=== PATIENT | female | born 1990 | race Caucasian/White ===

== ENCOUNTER → 2021-02-17 | Outpatient (REF) | payer BC, MEDICAID | LOC: M SFHCWAGY 16:47 | PROVIDERS: ATTEND Advanced Practice Midwife | DX: O34.219 Maternal care for unspecified type scar from previous cesarean delivery (principal); Z3A.00 Weeks of gestation of pregnancy not specified ==

== ENCOUNTER 2021-03-19 01:58 | Outpatient (CLI) | payer BC, MEDICAID ==
[~2021-03-19] VITALS: Ht 162.6 cm; Wt 77.0 kg
[2021-03-19 02:23] VITALS: BP 125/78
--- NOTE | 2021-03-19 03:38 | IPNPDOC ---
Text Note Date of Service The patient was seen on 03/19/21. NOTE S: 31 yo at 40 5/7 weeks presents with uterine contractions for several hours. She has had a small amount of leaking for the past 24 hours. no bleeding. 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 O: AVSS NAD Abd: NT, gravid FHT: Category one toco: q3-7 minutes, moderate ext: NT SSE: +nitrazine, negative pool, negative fern no lesions present in vulvovaginal area SVE: 1 cm/50%/-3 bedside ultrasound: vertex, normal ALPHONSO A/P 31 yo att 40 5/7 weeks with contractions, not in labor at this time. Not able to confirm rupture of membranes Pt desires to go home to await labor Pt will return for increasing pain Pt aware of risks VS,Fishbone, I+O VS, Fishbone, I+O Vital Signs Date Time Temp Pulse Resp B/P (MAP) Pulse Ox O2 Delivery O2 Flow Rate FiO2 03/19/21 02:23 99.3 93 16 125/78 (94) CLAIRE WHEATLEY MD Mar 19, 2021 03:38
[2021-03-19 03:45] VITALS: BP 141/80
[2021-03-20] MEDS ORDERED: PRENTAB9 PO (10:35)
== END 2021-03-19 04:00 | disposition home or self-care (01) ==
LOC: M LDO 01:58
PROVIDERS: ATTEND Specialist
DX: O47.03 False labor before 37 completed weeks of gestation, third trimester (principal); O48.0 Post-term pregnancy; Z3A.40 40 weeks gestation of pregnancy

== ENCOUNTER 2021-03-20 10:25 | Inpatient (IN) | payer BC, MEDICAID ==
[~2021-03-20] VITALS: Ht 162.6 cm; Wt 76.2 kg
[2021-03-20] VITALS (28 sets, daily range): BP systolic 92–148; BP diastolic 52–102
[2021-03-20] MEDS ORDERED: PRENTAB9 PO (10:35)
[2021-03-20] MEDS ORDERED: PENICILLIN G POTASSIUM IV 5 MU in D5W MINI-BAG PLUS 100 ML IV STA (16:28)
[2021-03-20] MEDS ORDERED: LACTATED RINGER'S 1000 ML IV STA (16:28)
[2021-03-20] MEDS ORDERED: LIDOCAINE 1% MDV 20ML VIAL INFIL PRN (16:30)
[2021-03-20] MEDS ORDERED: TRANEXAMIC ACID INJection 1,000 MG in NS 100 ML IV PRN (16:30)
[2021-03-20] MEDS ORDERED: OXYTOCIN DRIP 30 UNITS in IV 1 EA IV SCH (16:30)
[2021-03-20] MEDS ORDERED: OXYTOCIN INJ 10 UNITS/ML VIAL (J2590) IM PRN (16:30)
[2021-03-20] MEDS ORDERED: OXYTOCIN INJ 10 UNITS/ML VIAL (J2590) IV PRN (16:30)
[2021-03-20] MEDS ORDERED: CARBOPROST TROMETHAMINE 250 MCG/ML AMP IM PRN (16:30)
[2021-03-20] MEDS ORDERED: OXYTOCIN DRIP 30 UNITS in IV 1 EA IV PRN ×6 (16:30)
[2021-03-20] MEDS ORDERED: METHYLERGONOVINE MALEATE 0.2 MG/ML VIAL (J2210) IM PRN (16:30)
[2021-03-20] MEDS ORDERED: LR 1,000 ML IV SCH (16:30)
[2021-03-20 17:05] LABS: HEMATOCRIT 39.1 % (36.0-47.0); HEMOGLOBIN 12.4 g/dl (12.0-15.5); MEAN CORPUSCULAR HEMOGLOBIN 27.7 pg (27.0-33.0); MEAN CORPUSCULAR HGB CONC 31.7 g/dl (32.0-36.5); MEAN CORPUSCULAR VOLUME 87.3 fl (80.0-96.0); PLATELET COUNT, AUTOMATED 168 10^3/uL (150-450); RED BLOOD COUNT 4.48 10^6/uL (4.00-5.40); WHITE BLOOD COUNT 8.3 10^3/uL (4.0-10.0)
[2021-03-20] MEDS ORDERED: FENTANYL 2MCG/ML ROPIVACAINE 0.2% IN 0.9% NACL 100ML IVBAG As Ordered ONE (17:48)
--- NOTE | 2021-03-20 17:48 | HPEPDOC ---
Obstetrical History & Physical General Date of Admission Mar 20, 2021 at 16:29 History of Present Illness 31-year-old G3, P2002 at 40+6 weeks gestation. Presents with frequent, painful uterine contractions over the past several hours. Denies any loss of fluid or vaginal bleeding. Reports regular movement. ROS: no TAVAREZ, cp, sob, fever/chills/nausea/vomiting. course: Desires trial of labor after . 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 G2, 2014, 40 weeks, successful uncomplicated. Sochx: No tobacco, alcohol or drug use FamHx: None reported labs: Blood type O positive, antibody screen negative, HepBsAg neg, HIV neg, rubella immune, Hep C antibody negative, RPR nonreactive, CT/GC neg, urine culture negative, 1 hour glucose challenge test 134, GBS positive imaging: no anomalies or placental abnormalities Past Medical History Allergies Coded Allergies: No Known Allergies (Unverified , 03/20/21) Medications Scheduled No.137/Iron/Folic Acd ( Vitamin Tablet) 1 Each Tablet, 1 TAB PO DAILY Physical Examination Physical Examination GENERAL: Alert and oriented times three. ABDOMEN: Gravid and non-tender to touch. FETUS: Is vertex (VTX) by sterile vaginal examination (SVE), fetus is vertex (VTX) by [place]. HEART RATE: Regular rate and rhythm. LUNGS: Clear to auscultation (CTA). EXTREMITIES: No edema. No clonus. SVE: 1cm --> 4cm/90%/-2, intact membranes, cephalic, no bloody show. EFM: Cat I [place]: ctxs every 3-5 min. Vital Signs/I&O Vital Signs Date Time Temp Pulse Resp B/P (MAP) Pulse Ox O2 Delivery O2 Flow Rate FiO2 03/20/21 13:57 80 129/59 (82) 03/20/21 10:43 98.1 16 Laboratory Data 24H LABS Laboratory Tests 2 03/20/21 16:48: Nucleated Red Blood Cells % (auto) 0.0 CBC/BMP Laboratory Tests 03/20/21 16:48 Assessment/Plan Assessment 31-year-old G3, P2002 at 40+6 weeks gestation. Early active labor. Spontaneous onset. Reassuring maternal and status. Plan Admit and orient. 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 Group B Streptococcus (GBS) positive, penicillin prophylaxis order Labs and intravenous (IV) per unit protocol. Mode of delivery plan: Trial of labor after /vaginal after C-S as appropriate. CAMRYN ZUNIGA DO Mar 20, 2021 17:48
[2021-03-20] MEDS ORDERED: NALOXONE INJ 0.4MG/1ML VIAL (J2310 PER 1MG) IV PRN (19:15)
[2021-03-20] MEDS ORDERED: ePHEDrine SULFATE 25 MG/5 ML(5MG/ML) SYRINGE IV PRN (19:15)
[2021-03-20] MEDS ORDERED: diphenhydrAMINE 50MG/ML VIAL (J1200) IV PRN (19:15)
[2021-03-20] MEDS ORDERED: EPIDURAL COMMENT XX SCH (19:15)
[2021-03-20] MEDS ORDERED: REFRIGERATOR IV KEYS XX PRN (19:15)
[2021-03-20] MEDS ORDERED: LACTATED RINGER'S 1000 ML IV PRN (19:15)
[2021-03-20] MEDS ORDERED: EPIDURAL/PCA KEYS XX PRN (19:15)
[2021-03-20] MEDS ORDERED: FENTANYL/ROPIVACAINE/NACL BAG 100 ML EPIDURAL SCH (19:15)
[2021-03-20] MEDS ORDERED: ONDANSETRON 4MG/2ML VIAL IV PRN (19:15)
[2021-03-20] MEDS ORDERED: PENICILLIN G POTASSIUM IV 2.5 MU in IV 1 EA IV SCH (21:00)
[2021-03-21] MEDS ORDERED: OXYTOCIN DRIP 30 UNITS in IV 1 EA IV SCH ×2 (00:40→01:55)
--- NOTE | 2021-03-21 00:44 | IPNPDOC ---
Obstetrical Progress Note Date of Service Mar 21, 2021 Subjective Pt is comfortable with epidural. Clear fluid. Objective Vital Signs Date Time Temp Pulse Resp B/P (MAP) Pulse Ox O2 Delivery O2 Flow Rate FiO2 03/20/21 22:21 82 102/56 (71) 03/20/21 21:53 98.5 16 Assessment Heart Rate Tracing: Category I Tocometer Contractions: Yes Frequency: every 3-7 min. Sterile Vaginal Examination Dilation: complete Effacement (%): 100% Station: 0 Postion/Presentation: Cephalic presentation Assessment and Plan Status: Reassuring Anticipate: Vaginal Delivery Additional Comments Second stage of labor. Poor maternal pushing efforts. Reassuring maternal and status. Augment with pitocin/passive descent. CAMRYN ZUNIGA DO Mar 21, 2021 00:43
[2021-03-21] MEDS ORDERED: ONDANSETRON 4MG/2ML VIAL IV PRN (01:55)
[2021-03-21] MEDS ORDERED: DOCUSATE SODIUM 100MG CAPSULE PO PRN (01:55)
[2021-03-21] MEDS ORDERED: RHOGAM 300 MCG (1500 IU) INJ (J2790) IM SCH (01:55)
[2021-03-21] MEDS ORDERED: DIBUCAINE 1% OINTMENT 30GM TOP PRN (01:55)
[2021-03-21] MEDS ORDERED: ACETAMINOPHEN TAB 650MG DOSE (2X325MG) PO PRN (01:55)
[2021-03-21] MEDS ORDERED: IBUPROFEN 600MG TAB PO PRN (01:55)
[2021-03-21] MEDS ORDERED: MEASLES,MUMPS,RUBELLA VACCINE INJ (MMR-II) (90707) SC SCH (01:55)
--- NOTE | 2021-03-21 02:01 | DNPDOC ---
[facility] Delivery Note Delivery Note DATE OF DELIVERY: 03/21/2021 TIME OF DELIVERY: 0145 Spontaneous vaginal delivery. 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 Kyle Arce DO FACOG ANESTHESIA:. Epidural LACERATION:. None ESTIMATED BLOOD LOSS:. 200 mL. FINDINGS: 7 pound 9 ounce (3430g) Male , Score 8 and 9. DELIVERY SUMMARY: The active phase and second stage of labor progressed in normal fashion.. She received a complete course of GBS prophylaxis. She also received Pitocin augmentation throughout her second and third stage of labor. The head delivered in the FREDI position, and restituted LOT. No nuchal cord was noted. The anterior shoulder delivered with gentle downward guidance and the remainder of the body delivered with ease. The baby was placed on the patient's chest. Delayed cord clamping occurred for approximately 1 minute. The cord was then doubly clamped and cut. IV Pitocin was bolused to actively manage the third stage of labor. The placenta delivered intact without any difficulty within 10 minutes of delivery. The uterine fundus was noted to be firm and 2 cm below the umbilicus. The cervix, vagina, vulva and perineum were inspected.. No laceration. Excellent hemostasis was noted. Sponge, needle and instrument counts were correct per protocol. DO VARUN Worley JONATHAN R. DO Mar 21, 2021 02:01
[2021-03-21 04:30] VITALS: BP 121/58
[2021-03-21 06:00] VITALS: BP 121/58
[2021-03-21] MEDS: PRENATAL VITAMINS CHEWABLE TABLET PO SCH (08:35)
[2021-03-21] MEDS: IBUPROFEN 800 MG TAB PO PRN ×2 (08:57→20:49)
[2021-03-21 18:00] VITALS: BP 116/59
[2021-03-22 06:00] VITALS: BP 108/52
--- NOTE | 2021-03-22 07:15 | IPNPDOC ---
Text Note Date of Service The patient was seen on 03/22/21. NOTE PP #1 Visit accomplished with educational aide online Feels well. Reports adequate pain management. Voiding. VSS, afebrile, normotensive Breasts soft, nipples intact Fundus firm, NT, down 1 FB Lochia rubra light without odor Perineum intact PP #1 Routine care. Anticipate D/C in am VS,Fishbone, I+O VS, Fishbone, I+O Vital Signs Date Time Temp Pulse Resp B/P (MAP) Pulse Ox O2 Delivery O2 Flow Rate FiO2 03/22/21 06:00 98.2 91 18 108/52 (70) 03/21/21 18:00 100 Room Air I&O- Last 24 Hours up to 6 AM 03/22/21 06:00 Intake Total 600 ml Output Total 1250 ml Balance -650 ml Yandy Terrell CNM Mar 22, 2021 07:15
[2021-03-22] MEDS: PRENATAL VITAMINS CHEWABLE TABLET PO SCH (07:54)
[2021-03-22 14:59] VITALS: BP 124/56
[2021-03-22] MEDS: ACETAMINOPHEN 500 MG TAB PO PRN (15:26)
[2021-03-22 18:00] VITALS: BP 163/59
[2021-03-23 06:05] VITALS: BP 114/63
[2021-03-23] MEDS ORDERED: METAL LOCK LOOP XX ONE (07:43)
[2021-03-23] MEDS: ACETAMINOPHEN 500 MG TAB PO PRN (08:21)
[2021-03-23] MEDS: PRENATAL VITAMINS CHEWABLE TABLET PO SCH (09:50)
== END 2021-03-23 15:15 | disposition home or self-care (01) | DRG 560 ==
LOC: M LDO 10:25 → M LDI 16:29 → M OBS 03-21 04:27
PROVIDERS: ADMIT Obstetrics & Gynecology; ATTEND Obstetrics & Gynecology
PROC: 10E0XZZ Delivery of Products of Conception, External Approach (ICD-10-PCS; principal; 2021-03-21)
DX: O48.0 Post-term pregnancy (principal); Z3A.40 40 weeks gestation of pregnancy; Z37.0 Single live birth; O34.219 Maternal care for unspecified type scar from previous cesarean delivery

== ENCOUNTER 2021-11-11 17:35 | Emergency (ER) | payer BC, MEDICAID, OTHER ==
[~2021-11-11] VITALS: Ht 162.6 cm; Wt 67.3 kg
[~2021-11-11 17:35] MED LIST: PRENTAB9 PO
[2021-11-11] MEDS ORDERED: ONDANSETRON 4MG/2ML VIAL IV ONE (20:10)
[2021-11-11] MEDS ORDERED: MORPHINE 4 MG/ML 1ML VIAL/SYRINGE (J2270) IV ONE (20:10)
[2021-11-11] MEDS ORDERED: NS 1,000 ML IV ONE (20:10)
[2021-11-11 20:51] LABS: BASO % 0.4 % (0.0-1.0); EOS # 0.1 10^3/uL (0.0-0.5); EOS % 1.9 % (0.0-3.0); HEMATOCRIT 41.7 % (36.0-47.0); HEMOGLOBIN 13.4 g/dl (12.0-15.5); LYMPH # 1.5 10^3/uL (1.5-5.0); LYMPH % 56.7 % (24.0-44.0); MEAN CORPUSCULAR HEMOGLOBIN 27.2 pg (27.0-33.0); MEAN CORPUSCULAR HGB CONC 32.1 g/dl (32.0-36.5); MEAN CORPUSCULAR VOLUME 84.6 fl (80.0-96.0); MONO # 0.3 10^3/uL (0.0-0.8); MONO % 12.7 % (2.0-8.0); NEUTROPHILS % 27.9 % (36.0-66.0); PLATELET COUNT, AUTOMATED 139 10^3/uL (150-450); RED BLOOD COUNT 4.93 10^6/uL (4.00-5.40); WHITE BLOOD COUNT 2.7 10^3/uL (4.0-10.0)
[2021-11-11 21:04] LABS: BLOOD UREA NITROGEN 8 MG/DL (7-18); CREATININE FOR GFR 0.61 MG/DL (0.55-1.30); GLUCOSE, FASTING 85 MG/DL (70-100)
[2021-11-11 21:05] LABS: ALBUMIN 3.6 GM/DL (3.2-5.2); ALT/SGPT 74 U/L (12-78); BILIRUBIN,DIRECT 0.1 MG/DL (0.0-0.2); BILIRUBIN,TOTAL 0.3 MG/DL (0.2-1.0); CALCIUM LEVEL 8.8 MG/DL (8.5-10.1); CARBON DIOXIDE LEVEL 29 MEQ/L (21-32); CHLORIDE LEVEL 106 MEQ/L (98-107); GLOMERULAR FILTRATION RATE > 60.0 (>60); LIPASE 262 U/L (73-393); POTASSIUM SERUM 3.8 MEQ/L (3.5-5.1); SODIUM LEVEL 140 MEQ/L (136-145); TOTAL PROTEIN 7.4 GM/DL (6.4-8.2)
[2021-11-11 21:06] LABS: HCG, SERUM QUALITATIVE NEGATIVE (NEGATIVE)
[2021-11-11] MEDS ORDERED: ISOVUE-370 76% 100ML VIAL As Ordered ONE (21:11)
[2021-11-11 21:13] LABS: NEUTROPHILS # 0.8 10^3/uL (1.5-8.5)
[2021-11-11] MEDS ORDERED: FAMO20TA PO (23:04)
[2021-11-11] MEDS ORDERED: CARA1TAB6 PO (23:04)
[2021-11-11 23:28] VITALS: BP 110/67
[2021-11-13 16:08] LABS: Lyme Disease IgG/IgM Antibodie <0.91 ISR (0.00-0.90); Lyme Disease IgM Ab Quantitati <0.80 index (0.00-0.79)
== END 2021-11-12 00:20 | disposition home or self-care (01) ==
LOC: M ED 17:35
DX: U07.1 COVID-19 (principal); R10.13 Epigastric pain
CPT/HCPCS: 71045; 74177; 80048; 80076; 83690; 84703; 85025; 86617; 96361; 96374; 96375; 99284; J2270; J2405; Q9967

== ENCOUNTER 2021-11-21 13:55 | Emergency (ER) | payer OTHER ==
[~2021-11-21] VITALS: Ht 162.6 cm; Wt 65.3 kg
[2021-11-21 13:55] VITALS: BP 121/69
[~2021-11-21 13:55] MED LIST changes: +CARA1TAB6 PO; +FAMO20TA PO
[2021-11-21] MEDS ORDERED: NS 1,000 ML IV ONE (16:15)
[2021-11-21] MEDS ORDERED: KETOROLAC 30 MG/ML 1ML VIAL IV ONE (16:35)
[2021-11-21] MEDS ORDERED: GI COCKTAIL 50ML BTL(HYOSCYAMINE/MAALOX/LIDOCAINE VISCOUS)(1:3:1) PO ONE (16:35)
[2021-11-21 17:04] LABS: BASO % 0.4 % (0.0-1.0); EOS # 0.1 10^3/uL (0.0-0.5); EOS % 1.9 % (0.0-3.0); HEMATOCRIT 43.8 % (36.0-47.0); HEMOGLOBIN 13.9 g/dl (12.0-15.5); LYMPH # 2.3 10^3/uL (1.5-5.0); LYMPH % 45.2 % (24.0-44.0); MEAN CORPUSCULAR HEMOGLOBIN 26.7 pg (27.0-33.0); MEAN CORPUSCULAR HGB CONC 31.7 g/dl (32.0-36.5); MEAN CORPUSCULAR VOLUME 84.2 fl (80.0-96.0); MONO # 0.4 10^3/uL (0.0-0.8); MONO % 6.9 % (2.0-8.0); NEUTROPHILS # 2.3 10^3/uL (1.5-8.5); NEUTROPHILS % 45.2 % (36.0-66.0); PLATELET COUNT, AUTOMATED 216 10^3/uL (150-450); WHITE BLOOD COUNT 5.2 10^3/uL (4.0-10.0)
[2021-11-21 17:17] LABS: ALT/SGPT 49 U/L (12-78); BILIRUBIN,DIRECT 0.1 MG/DL (0.0-0.2); BILIRUBIN,TOTAL 0.5 MG/DL (0.2-1.0); BLOOD UREA NITROGEN 13 MG/DL (7-18); CALCIUM LEVEL 9.3 MG/DL (8.5-10.1); CARBON DIOXIDE LEVEL 29 MEQ/L (21-32); CHLORIDE LEVEL 109 MEQ/L (98-107); CREATININE FOR GFR 0.65 MG/DL (0.55-1.30); GLOMERULAR FILTRATION RATE > 60.0 (>60); GLUCOSE, FASTING 88 MG/DL (70-100); LIPASE 233 U/L (73-393); SODIUM LEVEL 141 MEQ/L (136-145); TOTAL PROTEIN 7.8 GM/DL (6.4-8.2)
[2021-11-21 17:20] LABS: HCG, SERUM QUALITATIVE NEGATIVE (NEGATIVE)
[2021-11-21] MEDS ORDERED: ISOVUE-370 76% 100ML VIAL As Ordered ONE (17:21)
[2021-11-21 17:54] LABS: ERYTHROCYTE SEDIMENTATION RATE 10 mm/hr (0-20)
[2021-11-21] MEDS ORDERED: PRED20TA PO (19:15)
== END 2021-11-21 19:29 | disposition home or self-care (01) ==
LOC: M ED 13:55
DX: R59.0 Localized enlarged lymph nodes (principal); R51.9 Headache, unspecified; R10.13 Epigastric pain; K21.9 Gastro-esophageal reflux disease without esophagitis
CPT/HCPCS: 70450; 70491; 76705; 80048; 80076; 83605; 83690; 84703; 85025; 85652; 86140; 96361; 96374; 99284; J1885; Q9967

== ENCOUNTER → 2021-12-02 | Outpatient (CLI) | payer OTHER ==
[~2021-12-02] MED LIST changes: +E-Z-GAS II EFFERVESCENT PACKET (SODIUM BICARB./CITRIC ACID/SIMETHICONE) As Ordered ONE; +E-Z-HD 98% w/w 340GM SUSP BTL As Ordered ONE; +E-Z-PAQUE 96% w/w SUSP 176GM BTL As Ordered ONE; +OMEP40CA4 PO; +PRED20TA PO
== END ==
LOC: M RAD 08:41
PROVIDERS: ATTEND Physician Assistant Medical
DX: R10.13 Epigastric pain (principal)

== ENCOUNTER 2021-12-03 07:30 | Emergency (ER) | payer OTHER ==
[~2021-12-03] VITALS: Ht 162.6 cm; Wt 64.0 kg
[~2021-12-03 07:30] MED LIST changes: -E-Z-GAS II EFFERVESCENT PACKET (SODIUM BICARB./CITRIC ACID/SIMETHICONE) As Ordered ONE; -E-Z-HD 98% w/w 340GM SUSP BTL As Ordered ONE; -E-Z-PAQUE 96% w/w SUSP 176GM BTL As Ordered ONE
[2021-12-03 07:39] VITALS: BP 135/70
[2021-12-03] MEDS ORDERED: KETOROLAC 60MG 2ML VIAL IM ONE (08:25)
[2021-12-03] MEDS ORDERED: ACETAMINOPHEN 500 MG TAB PO ONE (08:25)
== END 2021-12-03 09:49 | disposition home or self-care (01) ==
LOC: M ED 07:30
DX: R07.89 Other chest pain (principal); M54.9 Dorsalgia, unspecified; R10.9 Unspecified abdominal pain; R51.9 Headache, unspecified; R06.02 Shortness of breath; K21.9 Gastro-esophageal reflux disease without esophagitis; Z79.899 Other long term (current) drug therapy
CPT/HCPCS: 71045; 93005; 96372; 99284; J1885

== ENCOUNTER 2021-12-22 16:36 | Emergency (ER) | payer OTHER ==
[~2021-12-22] VITALS: Ht 162.6 cm; Wt 61.0 kg
[2021-12-22 18:55] LABS: BASO % 0.4 % (0.0-1.0); EOS # 0.1 10^3/uL (0.0-0.5); EOS % 1.2 % (0.0-3.0); HEMATOCRIT 41.4 % (36.0-47.0); HEMOGLOBIN 13.2 g/dl (12.0-15.5); LYMPH # 2.2 10^3/uL (1.5-5.0); MEAN CORPUSCULAR HEMOGLOBIN 26.9 pg (27.0-33.0); MEAN CORPUSCULAR HGB CONC 31.9 g/dl (32.0-36.5); MEAN CORPUSCULAR VOLUME 84.5 fl (80.0-96.0); MONO # 0.4 10^3/uL (0.0-0.8); NEUTROPHILS # 4.1 10^3/uL (1.5-8.5); NEUTROPHILS % 60.1 % (36.0-66.0); PLATELET COUNT, AUTOMATED 227 10^3/uL (150-450); WHITE BLOOD COUNT 6.8 10^3/uL (4.0-10.0)
[2021-12-22] MEDS ORDERED: KETOROLAC 30 MG/ML 1ML VIAL IV ONE (19:05)
[2021-12-22 19:19] LABS: BLOOD UREA NITROGEN 7 MG/DL (7-18); CALCIUM LEVEL 9.2 MG/DL (8.5-10.1); CARBON DIOXIDE LEVEL 30 MEQ/L (21-32); CHLORIDE LEVEL 107 MEQ/L (98-107); CREATININE FOR GFR 0.57 MG/DL (0.55-1.30); GLOMERULAR FILTRATION RATE > 60.0 (>60); GLUCOSE, FASTING 92 MG/DL (70-100); POTASSIUM SERUM 3.6 MEQ/L (3.5-5.1); SODIUM LEVEL 140 MEQ/L (136-145)
[2021-12-22] MEDS ORDERED: KETO10TAB PO (20:27)
[2021-12-22 20:42] VITALS: BP 116/63
== END 2021-12-22 20:46 | disposition home or self-care (01) ==
LOC: M ED 16:36
DX: R10.9 Unspecified abdominal pain (principal); R07.89 Other chest pain; I44.0 Atrioventricular block, first degree; R06.02 Shortness of breath; Z97.5 Presence of (intrauterine) contraceptive device; K21.9 Gastro-esophageal reflux disease without esophagitis; Z79.899 Other long term (current) drug therapy; Z86.16 Personal history of COVID-19
CPT/HCPCS: 74021; 76830; 76856; 80048; 84702; 85025; 85379; 93005; 93976; 96374; 99284; J1885

== ENCOUNTER 2021-12-27 10:12 | Emergency (ER) | payer OTHER ==
[~2021-12-27] VITALS: Ht 162.6 cm; Wt 60.0 kg
[~2021-12-27 10:12] MED LIST changes: +KETO10TAB PO
[2021-12-27] MEDS ORDERED: VENL37.598 (10:45)
[2021-12-27] MEDS ORDERED: KETOROLAC 30 MG/ML 1ML VIAL IM ONE (12:05)
[2021-12-27] MEDS ORDERED: KETOROLAC 30 MG/ML 1ML VIAL IV ONE (12:20)
[2021-12-27 14:00] VITALS: BP 124/80
[2021-12-28] MEDS ORDERED: FAMO20TA PO (10:21)
[2021-12-28] MEDS ORDERED: CARA1TAB6 PO (10:21)
== END 2021-12-27 14:36 | disposition home or self-care (01) ==
LOC: EDBD 10:12 → M ED 10:12
DX: F45.0 Somatization disorder (principal); F32.A Depression, unspecified; Z79.899 Other long term (current) drug therapy
CPT/HCPCS: 96374; 99284; J1885

== ENCOUNTER 2021-12-28 04:50 | Emergency (ER) | payer OTHER ==
[~2021-12-28] VITALS: Ht 162.6 cm; Wt 60.0 kg
[~2021-12-28 04:50] MED LIST changes: +VENL37.598
[2021-12-28 05:17] LABS: VENOUS BASE EXCESS 1.5 (-2.0-2.0); VENOUS HCO3 25.4 MEQ/L (23.0-27.0); VENOUS O2 SATURATION 87.2 % (60.0-80.0); VENOUS PARTIAL PRESSURE CO2 37.8 mmHg (38.0-50.0); VENOUS PH 7.445 UNITS (7.330-7.430); VENOUS STANDARD HCO3 25.5 MEQ/L; VENOUS TOTAL CO2 26.5 MEQ/L (24.0-28.0)
[2021-12-28 05:25] LABS: BASO % 0.3 % (0.0-1.0); EOS # 0.1 10^3/uL (0.0-0.5); EOS % 0.8 % (0.0-3.0); HEMATOCRIT 41.1 % (36.0-47.0); HEMOGLOBIN 13.4 g/dl (12.0-15.5); LYMPH # 1.6 10^3/uL (1.5-5.0); LYMPH % 23.3 % (24.0-44.0); MEAN CORPUSCULAR HEMOGLOBIN 27.2 pg (27.0-33.0); MEAN CORPUSCULAR HGB CONC 32.6 g/dl (32.0-36.5); MEAN CORPUSCULAR VOLUME 83.5 fl (80.0-96.0); MONO # 0.5 10^3/uL (0.0-0.8); MONO % 6.8 % (2.0-8.0); NEUTROPHILS # 4.6 10^3/uL (1.5-8.5); NEUTROPHILS % 68.3 % (36.0-66.0); PLATELET COUNT, AUTOMATED 233 10^3/uL (150-450); RED BLOOD COUNT 4.92 10^6/uL (4.00-5.40); WHITE BLOOD COUNT 6.7 10^3/uL (4.0-10.0)
[2021-12-28 05:52] LABS: ALBUMIN 3.8 GM/DL (3.2-5.2); ALT/SGPT 34 U/L (12-78); BILIRUBIN,DIRECT 0.2 MG/DL (0.0-0.2); BILIRUBIN,TOTAL 0.9 MG/DL (0.2-1.0); BLOOD UREA NITROGEN 8 MG/DL (7-18); CALCIUM LEVEL 9.1 MG/DL (8.5-10.1); CARBON DIOXIDE LEVEL 25 MEQ/L (21-32); CHLORIDE LEVEL 105 MEQ/L (98-107); CREATININE FOR GFR 0.86 MG/DL (0.55-1.30); GLOMERULAR FILTRATION RATE > 60.0 (>60); GLUCOSE, FASTING 167 MG/DL (70-100); LIPASE 128 U/L (73-393); POTASSIUM SERUM 4.7 MEQ/L (3.5-5.1); SODIUM LEVEL 137 MEQ/L (136-145); TOTAL PROTEIN 7.3 GM/DL (6.4-8.2)
[2021-12-28] MEDS ORDERED: HALOPERIDOL 5MG/ML VIAL (J1630 PER 1) IV ONE (07:00)
[2021-12-28] MEDS: GASTROGRAFIN SOLUTION 30ML PO SCH ×2 (07:09→07:42)
[2021-12-28] MEDS ORDERED: METOCLOPRAMIDE INJ 10MG/2ML VIAL (J2765 PER 1) IV ONE (07:10)
[2021-12-28] MEDS ORDERED: NS 1,000 ML IV ONE (07:10)
[2021-12-28] MEDS ORDERED: ISOVUE-370 76% 100ML VIAL As Ordered ONE (08:17)
[2021-12-28] MEDS ORDERED: CARA1TAB6 PO (10:21)
[2021-12-28] MEDS ORDERED: FAMO20TA PO (10:21)
[2021-12-28 10:26] LABS: VENOUS BASE EXCESS -2.1 (-2.0-2.0); VENOUS HCO3 23.8 MEQ/L (23.0-27.0); VENOUS O2 SATURATION 80.5 % (60.0-80.0); VENOUS PARTIAL PRESSURE O2 46.2 mmHg (30.0-50.0); VENOUS PH 7.342 UNITS (7.330-7.430); VENOUS STANDARD HCO3 22.4 MEQ/L; VENOUS TOTAL CO2 25.2 MEQ/L (24.0-28.0)
[2021-12-28 11:04] VITALS: BP 125/70
== END 2021-12-28 11:28 | disposition home or self-care (01) ==
LOC: EDBD 04:50 → M ED 04:50
DX: R10.84 Generalized abdominal pain (principal); M54.9 Dorsalgia, unspecified; R51.9 Headache, unspecified; K21.9 Gastro-esophageal reflux disease without esophagitis; R93.5 Abnormal findings on diagnostic imaging of other abdominal regions, including retroperitoneum; Z79.899 Other long term (current) drug therapy
CPT/HCPCS: 74177; 80048; 80076; 81001; 82803; 83605; 83690; 84702; 85025; 93041; 96361; 96374; 96375; 99285; J1630; J2765; Q9963; Q9967

== ENCOUNTER → 2022-02-23 | Outpatient (REF) | payer OTHER | LOC: M PLALAB 13:22 | PROVIDERS: ATTEND Advanced Practice Midwife | DX: Z30.432 Encounter for removal of intrauterine contraceptive device (principal) ==

== ENCOUNTER → 2022-03-12 | Outpatient (CLI) | payer OTHER | LOC: M WHC 10:17 | PROVIDERS: ATTEND Specialist | DX: N64.9 Disorder of breast, unspecified (principal) ==

== ENCOUNTER → 2022-03-15 | Outpatient (CLI) | payer OTHER ==
[2022-03-15 14:29] LABS: BASO % 0.5 % (0.0-1.0); EOS # 0.1 10^3/uL (0.0-0.5); EOS % 2.4 % (0.0-3.0); HEMOGLOBIN 12.1 g/dl (12.0-15.5); LYMPH # 2.3 10^3/uL (1.5-5.0); LYMPH % 41.8 % (24.0-44.0); MEAN CORPUSCULAR HEMOGLOBIN 27.9 pg (27.0-33.0); MEAN CORPUSCULAR HGB CONC 32.7 g/dl (32.0-36.5); MEAN CORPUSCULAR VOLUME 85.3 fl (80.0-96.0); MONO # 0.4 10^3/uL (0.0-0.8); MONO % 7.6 % (2.0-8.0); NEUTROPHILS # 2.6 10^3/uL (1.5-8.5); NEUTROPHILS % 47.5 % (36.0-66.0); PLATELET COUNT, AUTOMATED 189 10^3/uL (150-450); RED BLOOD COUNT 4.34 10^6/uL (4.00-5.40); WHITE BLOOD COUNT 5.5 10^3/uL (4.0-10.0)
[2022-03-15 15:02] LABS: ALBUMIN 3.5 GM/DL (3.2-5.2); ALT/SGPT 61 U/L (12-78); BILIRUBIN,TOTAL 0.5 MG/DL (0.2-1.0); BLOOD UREA NITROGEN 13 MG/DL (7-18); CALCIUM LEVEL 8.6 MG/DL (8.5-10.1); CARBON DIOXIDE LEVEL 26 MEQ/L (21-32); CHLORIDE LEVEL 107 MEQ/L (98-107); CREATININE FOR GFR 0.62 MG/DL (0.55-1.30); FREE T4 0.74 NG/DL (0.76-1.46); GLOMERULAR FILTRATION RATE > 60.0 (>60); GLUCOSE, FASTING 92 MG/DL (70-100); IRON (FE) 61 UG/DL (50-170); PERCENT SATURATION 16.9 % (13.2-45.0); POTASSIUM SERUM 3.7 MEQ/L (3.5-5.1); SODIUM LEVEL 138 MEQ/L (136-145); TOTAL IRON BINDING CAPACITY 360 UG/DL (250-450); TOTAL PROTEIN 7.1 GM/DL (6.4-8.2)
== END ==
LOC: M LAB 14:10
PROVIDERS: ATTEND Internal Medicine Gastroenterology
DX: R10.11 Right upper quadrant pain (principal)

== ENCOUNTER 2022-04-02 17:52 | Emergency (ER) | payer OTHER ==
[~2022-04-02] VITALS: Ht 162.6 cm; Wt 56.4 kg
[2022-04-02] MEDS ORDERED: NS 1,000 ML IV ONE (18:30)
[2022-04-02] MEDS ORDERED: ONDANSETRON 4MG/2ML VIAL IV ONE (18:30)
[2022-04-02 19:10] LABS: BASO % 0.6 % (0.0-1.0); EOS # 0.1 10^3/uL (0.0-0.5); EOS % 2.4 % (0.0-3.0); HEMOGLOBIN 11.2 g/dl (12.0-15.5); LYMPH # 2.3 10^3/uL (1.5-5.0); LYMPH % 46.9 % (24.0-44.0); MEAN CORPUSCULAR HEMOGLOBIN 27.4 pg (27.0-33.0); MEAN CORPUSCULAR VOLUME 85.6 fl (80.0-96.0); MONO # 0.4 10^3/uL (0.0-0.8); NEUTROPHILS # 2.1 10^3/uL (1.5-8.5); NEUTROPHILS % 41.9 % (36.0-66.0); PLATELET COUNT, AUTOMATED 166 10^3/uL (150-450); RED BLOOD COUNT 4.09 10^6/uL (4.00-5.40); WHITE BLOOD COUNT 4.9 10^3/uL (4.0-10.0)
[2022-04-02 19:11] LABS: HCG, SERUM QUALITATIVE NEGATIVE (NEGATIVE)
[2022-04-02 19:21] LABS: ALBUMIN 3.5 GM/DL (3.2-5.2); ALT/SGPT 49 U/L (12-78); BILIRUBIN,DIRECT < 0.1 MG/DL (0.0-0.2); BILIRUBIN,TOTAL 0.4 MG/DL (0.2-1.0); BLOOD UREA NITROGEN 14 MG/DL (7-18); CALCIUM LEVEL 8.7 MG/DL (8.5-10.1); CARBON DIOXIDE LEVEL 28 MEQ/L (21-32); CHLORIDE LEVEL 108 MEQ/L (98-107); CREATININE FOR GFR 0.83 MG/DL (0.55-1.30); GLOMERULAR FILTRATION RATE > 60.0 (>60); GLUCOSE, FASTING 88 MG/DL (70-100); LIPASE 167 U/L (73-393); POTASSIUM SERUM 4.8 MEQ/L (3.5-5.1); SODIUM LEVEL 140 MEQ/L (136-145); TOTAL PROTEIN 7.2 GM/DL (6.4-8.2)
[2022-04-02] MEDS ORDERED: ONDA4TAB6 PO (19:58)
[2022-04-02] MEDS ORDERED: SIME180C25 PO (20:33)
[2022-04-02 20:52] VITALS: BP 104/61
[2022-04-03] MEDS ORDERED: OMEP40CA5 PO (13:34)
[2022-04-03] MEDS ORDERED: VENL75CA47 PO (13:34)
== END 2022-04-02 20:59 | disposition home or self-care (01) ==
LOC: M ED 17:52
DX: K80.20 Calculus of gallbladder without cholecystitis without obstruction (principal); K83.8 Other specified diseases of biliary tract; K21.9 Gastro-esophageal reflux disease without esophagitis; Z79.899 Other long term (current) drug therapy
CPT/HCPCS: 76705; 80048; 80076; 83690; 84703; 85025; 96361; 96374; 99284; J2405

== ENCOUNTER → 2022-04-17 | Outpatient (CLI) | payer OTHER ==
[~2022-04-17] MED LIST changes: +OMEP40CA5 PO; +ONDA4TAB6 PO; +SIME180C25 PO; +VENL75CA47 PO
== END ==
LOC: M RAD 15:41
PROVIDERS: ATTEND Internal Medicine Gastroenterology
DX: K80.67 Calculus of gallbladder and bile duct with acute and chronic cholecystitis with obstruction (principal); K80.51 Calculus of bile duct without cholangitis or cholecystitis with obstruction

== ENCOUNTER 2024-06-16 13:24 | Emergency (ER) | payer OTHER ==
[~2024-06-16] VITALS: Ht 162.6 cm; Wt 64.8 kg
[~2024-06-16 13:24] MED LIST changes: +ONDA-282 PO; -ONDA4TAB6 PO
[2024-06-16 14:43] LABS: BASO % 0.5 % (0.0-1.0); EOS # 0.3 10^3/uL (0.0-0.5); EOS % 4.3 % (0.0-3.0); HEMATOCRIT 37.3 % (36.0-47.0); HEMOGLOBIN 12.3 g/dl (12.0-15.5); LYMPH # 1.9 10^3/uL (1.5-5.0); LYMPH % 33.7 % (24.0-44.0); MEAN CORPUSCULAR HEMOGLOBIN 27.6 pg (27.0-33.0); MEAN CORPUSCULAR VOLUME 83.6 fl (80.0-96.0); MONO # 0.4 10^3/uL (0.0-0.8); MONO % 6.6 % (2.0-8.0); NEUTROPHILS # 3.2 10^3/uL (1.5-8.5); NEUTROPHILS % 54.7 % (36.0-66.0); PLATELET COUNT, AUTOMATED 173 10^3/uL (150-450); RED BLOOD COUNT 4.46 10^6/uL (4.00-5.40); WHITE BLOOD COUNT 5.8 10^3/uL (4.0-10.0)
[2024-06-16 15:12] LABS: BLOOD UREA NITROGEN 11 MG/DL (9-23); CALCIUM LEVEL 9.1 MG/DL (8.5-10.1); CARBON DIOXIDE LEVEL 26 MMOL/L (20-31); CHLORIDE LEVEL 109 MMOL/L (98-107); CREATININE FOR GFR 0.53 MG/DL (0.55-1.30); GLOMERULAR FILTRATION RATE > 60.0 (>60); GLUCOSE, FASTING 101 MG/DL (60-100); POTASSIUM SERUM 3.7 MMOL/L (3.5-5.1); SODIUM LEVEL 140 MMOL/L (136-145)
[2024-06-16 15:58] LABS: HCG, SERUM QUANTITATIVE 16769.8 MIU/ML (<4.2)
[2024-06-16 16:35] VITALS: BP 121/68; TEMP 97.2; O2SAT 100
== END 2024-06-16 17:09 | disposition home or self-care (01) ==
LOC: M ED 13:24
DX: O36.4XX1 Maternal care for intrauterine death, fetus 1 (principal); O99.611 Diseases of the digestive system complicating pregnancy, first trimester; Z79.899 Other long term (current) drug therapy

== ENCOUNTER → 2024-06-23 | Outpatient (CLI) | payer OTHER | LOC: M PLALAB 11:35 | PROVIDERS: ATTEND Advanced Practice Midwife | DX: O03.9 Complete or unspecified spontaneous abortion without complication (principal) ==

== ENCOUNTER → 2024-06-30 | Outpatient (CLI) | payer OTHER ==
[~2024-06-30] MED LIST changes: +HYDR2.5C; +LARI1TAB3
== END ==
LOC: M PLALAB 13:40
PROVIDERS: ATTEND Advanced Practice Midwife
DX: O03.9 Complete or unspecified spontaneous abortion without complication (principal)

== ENCOUNTER 2024-07-05 13:37 | Emergency (ER) | payer OTHER ==
[~2024-07-05] VITALS: Ht 162.6 cm; Wt 64.9 kg
[~2024-07-05 13:37] MED LIST changes: -HYDR2.5C; -LARI1TAB3
[2024-07-05 13:41] VITALS: BP 110/55; TEMP 96.5; O2SAT 98
[2024-07-05] MEDS ORDERED: LARI1TAB3 (13:50)
[2024-07-05] MEDS ORDERED: HYDR2.5C (13:50)
== END 2024-07-05 17:00 | disposition left against medical advice (07) ==
LOC: M ED 13:37
DX: Z53.21 Procedure and treatment not carried out due to patient leaving prior to being seen by health care provider (principal)

== ENCOUNTER → 2024-07-14 | Outpatient (REF) | payer OTHER ==
[~2024-07-14] MED LIST changes: +HYDR2.5C; +LARI1TAB3
[2024-07-14 18:18] LABS: BASO % 0.5 % (0.0-1.0); EOS # 0.2 10^3/uL (0.0-0.5); EOS % 3.7 % (0.0-3.0); HEMATOCRIT 38.7 % (36.0-47.0); HEMOGLOBIN 12.6 g/dl (12.0-15.5); LYMPH # 1.7 10^3/uL (1.5-5.0); MEAN CORPUSCULAR HEMOGLOBIN 27.9 pg (27.0-33.0); MEAN CORPUSCULAR HGB CONC 32.6 g/dl (32.0-36.5); MEAN CORPUSCULAR VOLUME 85.8 fl (80.0-96.0); MONO # 0.4 10^3/uL (0.0-0.8); MONO % 8.2 % (2.0-8.0); NEUTROPHILS % 47.4 % (36.0-66.0); PLATELET COUNT, AUTOMATED 191 10^3/uL (150-450); RED BLOOD COUNT 4.51 10^6/uL (4.00-5.40); WHITE BLOOD COUNT 4.3 10^3/uL (4.0-10.0)
[2024-07-14 18:42] LABS: ALBUMIN 3.6 G/DL (3.2-5.2); ALKALINE PHOSPHATASE 57 U/L (46-116); ALT/SGPT 29 U/L (7.0-40); AST/SGOT 19 U/L (<34); BILIRUBIN,TOTAL 0.8 MG/DL (0.3-1.2); BLOOD UREA NITROGEN 10 MG/DL (9-23); CARBON DIOXIDE LEVEL 25 MMOL/L (20-31); CHLORIDE LEVEL 107 MMOL/L (98-107); CREATININE FOR GFR 0.62 MG/DL (0.55-1.30); GLOMERULAR FILTRATION RATE > 60.0 (>60); GLUCOSE, FASTING 78 MG/DL (60-100); SODIUM LEVEL 136 MMOL/L (136-145); TOTAL PROTEIN 7.1 G/DL (5.7-8.2)
[2024-07-14 18:44] LABS: THYROID STIMULATING HORMONE 1.759 uIU/ML (0.55-4.78)
== END ==
LOC: M LAB REF 16:39
PROVIDERS: ATTEND Pediatrics
DX: L28.2 Other prurigo (principal)

== ENCOUNTER 2024-07-23 19:34 | Emergency (ER) | payer OTHER ==
[~2024-07-23] VITALS: Ht 165.1 cm; Wt 63.0 kg
[~2024-07-23 19:34] MED LIST changes: -SIME180C25 PO; +SIME1CAP4 PO
[2024-07-23 19:40] VITALS: TEMP 98.3
[2024-07-23 20:53] LABS: BASO % 0.8 % (0.0-1.0); EOS # 0.2 10^3/uL (0.0-0.5); EOS % 4.1 % (0.0-3.0); HEMATOCRIT 41.3 % (36.0-47.0); HEMOGLOBIN 13.4 g/dl (12.0-15.5); LYMPH # 2.1 10^3/uL (1.5-5.0); LYMPH % 40.8 % (24.0-44.0); MEAN CORPUSCULAR HEMOGLOBIN 27.9 pg (27.0-33.0); MEAN CORPUSCULAR HGB CONC 32.4 g/dl (32.0-36.5); MONO # 0.4 10^3/uL (0.0-0.8); MONO % 7.6 % (2.0-8.0); NEUTROPHILS # 2.4 10^3/uL (1.5-8.5); NEUTROPHILS % 46.5 % (36.0-66.0); PLATELET COUNT, AUTOMATED 202 10^3/uL (150-450); WHITE BLOOD COUNT 5.2 10^3/uL (4.0-10.0)
[2024-07-23 21:14] LABS: LIPASE 50 U/L (12-53)
[2024-07-23 21:16] LABS: ALBUMIN 3.7 G/DL (3.2-5.2); ALKALINE PHOSPHATASE 65 U/L (46-116); ALT/SGPT 38 U/L (7.0-40); AST/SGOT 26 U/L (<34); BILIRUBIN,DIRECT 0.2 MG/DL (<0.4); BILIRUBIN,TOTAL 0.6 MG/DL (0.3-1.2); BLOOD UREA NITROGEN 11 MG/DL (9-23); CALCIUM LEVEL 9.8 MG/DL (8.5-10.1); CARBON DIOXIDE LEVEL 31 MMOL/L (20-31); CHLORIDE LEVEL 106 MMOL/L (98-107); CREATININE FOR GFR 0.69 MG/DL (0.55-1.30); GLOMERULAR FILTRATION RATE > 60.0 (>60); GLUCOSE, FASTING 98 MG/DL (60-100); POTASSIUM SERUM 3.9 MMOL/L (3.5-5.1); SODIUM LEVEL 140 MMOL/L (136-145); TOTAL PROTEIN 7.4 G/DL (5.7-8.2)
[2024-07-23 21:22] LABS: HCG, SERUM QUALITATIVE NEGATIVE (NEGATIVE)
[2024-07-23] MEDS ORDERED: ISOVUE-370 76% 100ML VIAL As Ordered ONE (21:32)
[2024-07-24] VITALS: BP 110/65
[2024-07-24 00:15] VITALS: O2SAT 99
== END 2024-07-24 00:32 | disposition home or self-care (01) ==
LOC: M ED 19:34
DX: R10.9 Unspecified abdominal pain (principal); B86 Scabies; Z79.899 Other long term (current) drug therapy

== ENCOUNTER → 2024-07-28 | Outpatient (REF) | payer OTHER ==
[2024-07-28 18:12] LABS: BASO % 0.8 % (0.0-1.0); EOS # 0.1 10^3/uL (0.0-0.5); EOS % 2.6 % (0.0-3.0); HEMATOCRIT 41.8 % (36.0-47.0); HEMOGLOBIN 13.6 g/dl (12.0-15.5); LYMPH % 40.6 % (24.0-44.0); MEAN CORPUSCULAR HEMOGLOBIN 28.3 pg (27.0-33.0); MEAN CORPUSCULAR HGB CONC 32.5 g/dl (32.0-36.5); MEAN CORPUSCULAR VOLUME 86.9 fl (80.0-96.0); MONO # 0.4 10^3/uL (0.0-0.8); MONO % 7.6 % (2.0-8.0); NEUTROPHILS # 2.4 10^3/uL (1.5-8.5); NEUTROPHILS % 48.2 % (36.0-66.0); PLATELET COUNT, AUTOMATED 201 10^3/uL (150-450); RED BLOOD COUNT 4.81 10^6/uL (4.00-5.40)
== END ==
LOC: M LAB REF 17:45
PROVIDERS: ATTEND Nurse Practitioner Family
DX: R10.9 Unspecified abdominal pain (principal); R11.2 Nausea with vomiting, unspecified

== ENCOUNTER → 2024-08-02 | Outpatient (REF) | payer OTHER ==
[2024-08-02 15:52] LABS: CLOSTRIDIUM DIFFICILE PCR NEGATIVE (NEGATIVE)
== END ==
LOC: M LAB REF 14:01
PROVIDERS: ATTEND Nurse Practitioner Family
DX: R10.9 Unspecified abdominal pain (principal); R11.2 Nausea with vomiting, unspecified

== ENCOUNTER 2024-08-11 09:38 | Emergency (ER) | payer OTHER ==
[~2024-08-11] VITALS: Ht 175.3 cm; Wt 59.6 kg
[2024-08-11] MEDS ORDERED: CLAR500T97 (10:20)
[2024-08-11] MEDS ORDERED: AMOX500C (10:20)
[2024-08-11] MEDS ORDERED: OMEP40CA5 (10:20)
[2024-08-11 12:22] LABS: BASO % 0.5 % (0.0-1.0); EOS # 0.1 10^3/uL (0.0-0.5); EOS % 1.9 % (0.0-3.0); HEMATOCRIT 43.1 % (36.0-47.0); HEMOGLOBIN 14.3 g/dl (12.0-15.5); LYMPH # 1.8 10^3/uL (1.5-5.0); LYMPH % 24.4 % (24.0-44.0); MEAN CORPUSCULAR HEMOGLOBIN 28.7 pg (27.0-33.0); MEAN CORPUSCULAR HGB CONC 33.2 g/dl (32.0-36.5); MEAN CORPUSCULAR VOLUME 86.5 fl (80.0-96.0); MONO # 0.4 10^3/uL (0.0-0.8); MONO % 5.7 % (2.0-8.0); NEUTROPHILS # 5.1 10^3/uL (1.5-8.5); NEUTROPHILS % 67.2 % (36.0-66.0); PLATELET COUNT, AUTOMATED 187 10^3/uL (150-450); RED BLOOD COUNT 4.98 10^6/uL (4.00-5.40); WHITE BLOOD COUNT 7.5 10^3/uL (4.0-10.0)
[2024-08-11 12:52] LABS: LIPASE 59 U/L (12-53)
[2024-08-11 12:53] LABS: HCG, SERUM QUALITATIVE NEGATIVE (NEGATIVE)
[2024-08-11 12:54] LABS: ALBUMIN 3.8 G/DL (3.2-5.2); ALKALINE PHOSPHATASE 70 U/L (35-104); ALT/SGPT 35 U/L (7.0-40); AST/SGOT 27 U/L (<34); BILIRUBIN,DIRECT 0.2 MG/DL (<0.4); BILIRUBIN,TOTAL 0.8 MG/DL (0.3-1.2); BLOOD UREA NITROGEN 10 MG/DL (9-23); CALCIUM LEVEL 9.8 MG/DL (8.5-10.1); CARBON DIOXIDE LEVEL 25 MMOL/L (20-31); CHLORIDE LEVEL 108 MMOL/L (98-107); CREATININE FOR GFR 0.53 MG/DL (0.55-1.30); GLOMERULAR FILTRATION RATE > 60.0 (>60); GLUCOSE, FASTING 97 MG/DL (60-100); POTASSIUM SERUM 4.1 MMOL/L (3.5-5.1); SODIUM LEVEL 141 MMOL/L (136-145); TOTAL PROTEIN 7.4 G/DL (5.7-8.2)
[2024-08-11 13:15] LABS: D-DIMER QUANT 0.34 ug/mL (<0.5); INR 1.02; PARTIAL THROMBOPLASTIN TIME 28.1 SECONDS (24.8-34.2); PROTHROMBIN TIME 13.7 SECONDS (12.5-14.5)
[2024-08-11] MEDS: KETOROLAC 30 MG/ML 1ML VIAL IV ONE (13:59)
[2024-08-11] MEDS ORDERED: ISOVUE-370 76% 100ML VIAL As Ordered ONE (14:42)
[2024-08-11 15:38] LABS: Trichomonas vaginalis (AMP) NOT DETECTED (NEGATIVE)
[2024-08-11 16:02] LABS: GC DNA AMPLIFICATION NEGATIVE (NEGATIVE)
[2024-08-11 16:15] VITALS: BP 111/64; TEMP 97.8; O2SAT 100
== END 2024-08-11 16:35 | disposition home or self-care (01) ==
LOC: M ED 09:38
DX: R10.9 Unspecified abdominal pain (principal); R07.9 Chest pain, unspecified; K21.9 Gastro-esophageal reflux disease without esophagitis; Z79.2 Long term (current) use of antibiotics
CPT/HCPCS: 71046; 74177; 80048; 80076; 81001; 83690; 84484; 84703; 85025; 85379; 85610; 85730; 87661; 87810; 87850; 93005; 93041; 94760; 96374; 99285; J1885; Q9967

== ENCOUNTER 2024-08-20 11:09 | Emergency (ER) | payer OTHER ==
[~2024-08-20] VITALS: Ht 162.6 cm; Wt 58.8 kg
[~2024-08-20 11:09] MED LIST changes: +AMOX500C; +CLAR500T97; +OMEP40CA5
[2024-08-20 13:25] LABS: BASO % 0.4 % (0.0-1.0); EOS # 0.1 10^3/uL (0.0-0.5); EOS % 2.1 % (0.0-3.0); LYMPH # 1.8 10^3/uL (1.5-5.0); LYMPH % 37.9 % (24.0-44.0); MEAN CORPUSCULAR HGB CONC 34.1 g/dl (32.0-36.5); MEAN CORPUSCULAR VOLUME 85.1 fl (80.0-96.0); MONO # 0.3 10^3/uL (0.0-0.8); MONO % 6.7 % (2.0-8.0); NEUTROPHILS # 2.5 10^3/uL (1.5-8.5); NEUTROPHILS % 52.7 % (36.0-66.0); PLATELET COUNT, AUTOMATED 192 10^3/uL (150-450); RED BLOOD COUNT 4.82 10^6/uL (4.00-5.40); WHITE BLOOD COUNT 4.8 10^3/uL (4.0-10.0)
[2024-08-20 13:45] LABS: LIPASE 51 U/L (12-53)
[2024-08-20 13:46] LABS: HCG, SERUM QUALITATIVE NEGATIVE (NEGATIVE)
[2024-08-20 13:47] LABS: ALBUMIN 3.9 G/DL (3.2-5.2); ALKALINE PHOSPHATASE 63 U/L (35-104); ALT/SGPT 30 U/L (7.0-40); AST/SGOT 20 U/L (<34); BILIRUBIN,DIRECT 0.3 MG/DL (<0.4); BILIRUBIN,TOTAL 1.1 MG/DL (0.3-1.2); TOTAL PROTEIN 7.4 G/DL (5.7-8.2)
[2024-08-20 15:30] VITALS: BP 116/74; TEMP 97.6; O2SAT 96
== END 2024-08-20 15:42 | disposition home or self-care (01) ==
LOC: M ED 11:09
DX: R10.9 Unspecified abdominal pain (principal); K21.9 Gastro-esophageal reflux disease without esophagitis; Z79.2 Long term (current) use of antibiotics; Z79.899 Other long term (current) drug therapy

== ENCOUNTER → 2024-08-24 | Outpatient (REF) | payer OTHER ==
[2024-08-24 19:50] LABS: IMMUNOGLOBULIN A 214.9 MG/DL (40-350)
== END ==
LOC: M LAB REF 16:41
PROVIDERS: ATTEND Nurse Practitioner Family
DX: R10.9 Unspecified abdominal pain (principal); R14.0 Abdominal distension (gaseous); R11.2 Nausea with vomiting, unspecified

== ENCOUNTER → 2024-11-29 | Outpatient (CLI) | payer OTHER ==
[~2024-11-29] MED LIST changes: +METH-1164 PO; +MIRA3350 PO
[2024-11-29 15:25] LABS: BASO # 0.1 10^3/uL (0.0-0.2); EOS # 0.1 10^3/uL (0.0-0.5); EOS % 1.8 % (0.0-3.0); HEMATOCRIT 41.4 % (36.0-47.0); HEMOGLOBIN 13.4 g/dl (12.0-15.5); LYMPH # 2.3 10^3/uL (1.5-5.0); LYMPH % 47.3 % (24.0-44.0); MEAN CORPUSCULAR HEMOGLOBIN 27.1 pg (27.0-33.0); MEAN CORPUSCULAR HGB CONC 32.4 g/dl (32.0-36.5); MEAN CORPUSCULAR VOLUME 83.8 fl (80.0-96.0); MONO # 0.4 10^3/uL (0.0-0.8); MONO % 7.7 % (2.0-8.0); NEUTROPHILS # 2.1 10^3/uL (1.5-8.5); NEUTROPHILS % 42.2 % (36.0-66.0); PLATELET COUNT, AUTOMATED 217 10^3/uL (150-450); RED BLOOD COUNT 4.94 10^6/uL (4.00-5.40); WHITE BLOOD COUNT 4.9 10^3/uL (4.0-10.0)
[2024-11-29 15:48] LABS: ALBUMIN 4.1 G/DL (3.2-5.2); ALKALINE PHOSPHATASE 68 U/L (35-104); ALT/SGPT 29 U/L (7.0-40); AST/SGOT 26 U/L (<34); BLOOD UREA NITROGEN 8 MG/DL (9-23); CALCIUM LEVEL 9.6 MG/DL (8.5-10.1); CARBON DIOXIDE LEVEL 26 MMOL/L (20-31); CHLORIDE LEVEL 105 MMOL/L (98-107); CREATININE FOR GFR 0.56 MG/DL (0.55-1.30); GLOMERULAR FILTRATION RATE > 60.0 (>60); GLUCOSE, FASTING 90 MG/DL (60-100); POTASSIUM SERUM 4.1 MMOL/L (3.5-5.1); SODIUM LEVEL 140 MMOL/L (136-145); TOTAL PROTEIN 7.8 G/DL (5.7-8.2)
[2024-11-29 15:52] LABS: THYROID STIMULATING HORMONE 1.925 uIU/ML (0.55-4.78)
== END ==
LOC: M RAD 14:10
PROVIDERS: ATTEND Student in an Organized Health Care Education/Training Program
DX: M54.50 Low back pain, unspecified (principal); R63.4 Abnormal weight loss

== ENCOUNTER 2024-11-30 17:55 | Emergency (ER) | payer OTHER ==
[~2024-11-30] VITALS: Ht 162.6 cm; Wt 54.8 kg
[~2024-11-30 17:55] MED LIST changes: -METH-1164 PO; -MIRA3350 PO
[2024-11-30] MEDS ORDERED: METH-1164 PO (18:04)
[2024-11-30] MEDS ORDERED: MIRA3350 PO (22:59)
[2024-11-30 23:17] VITALS: BP 121/65; TEMP 97.3; O2SAT 100
== END 2024-11-30 23:22 | disposition home or self-care (01) ==
LOC: M ED 17:55
DX: K59.00 Constipation, unspecified (principal); K21.9 Gastro-esophageal reflux disease without esophagitis; Z79.899 Other long term (current) drug therapy

== ENCOUNTER 2024-12-01 16:38 | Emergency (ER) | payer OTHER ==
[~2024-12-01 16:38] MED LIST changes: +METH-1164 PO; +MIRA3350 PO
[2024-12-01] MEDS: LIDOCAINE VISCOUS 2% SOLN 15ML UDC PO ONE (17:30)
[2024-12-01] MEDS: PANTOPRAZOLE 40MG VIAL IV ONE (17:30)
[2024-12-01] MEDS: MAALOX 30 ML SUSP *UDC PO ONE (17:30)
[2024-12-01] MEDS: ACETAMINOPHEN 325 MG TAB PO ONE (17:30)
[2024-12-01 18:00] VITALS: TEMP 97.5
[2024-12-01 18:00] LABS: BASO % 0.5 % (0.0-1.0); EOS # 0.1 10^3/uL (0.0-0.5); EOS % 1.7 % (0.0-3.0); HEMOGLOBIN 12.8 g/dl (12.0-15.5); MEAN CORPUSCULAR HEMOGLOBIN 27.7 pg (27.0-33.0); MEAN CORPUSCULAR HGB CONC 32.8 g/dl (32.0-36.5); MEAN CORPUSCULAR VOLUME 84.4 fl (80.0-96.0); MONO # 0.3 10^3/uL (0.0-0.8); MONO % 8.2 % (2.0-8.0); NEUTROPHILS # 1.8 10^3/uL (1.5-8.5); NEUTROPHILS % 42.6 % (36.0-66.0); PLATELET COUNT, AUTOMATED 206 10^3/uL (150-450); RED BLOOD COUNT 4.62 10^6/uL (4.00-5.40); WHITE BLOOD COUNT 4.2 10^3/uL (4.0-10.0)
[2024-12-01] MEDS: NS (Normal Saline) 0.9% 1,000 ML IV ONE (18:22)
[2024-12-01 18:32] LABS: LIPASE 40 U/L (12-53)
[2024-12-01 18:33] LABS: HCG, SERUM QUALITATIVE NEGATIVE (NEGATIVE)
[2024-12-01 18:35] LABS: ALBUMIN 3.8 G/DL (3.2-5.2); ALKALINE PHOSPHATASE 64 U/L (35-104); ALT/SGPT 31 U/L (7.0-40); AST/SGOT 32 U/L (<34); BILIRUBIN,DIRECT 0.2 MG/DL (<0.4); BILIRUBIN,TOTAL 0.8 MG/DL (0.3-1.2); BLOOD UREA NITROGEN 7 MG/DL (9-23); CALCIUM LEVEL 9.3 MG/DL (8.5-10.1); CARBON DIOXIDE LEVEL 27 MMOL/L (20-31); CHLORIDE LEVEL 105 MMOL/L (98-107); CREATININE FOR GFR 0.59 MG/DL (0.55-1.30); GLOMERULAR FILTRATION RATE > 60.0 (>60); GLUCOSE, FASTING 90 MG/DL (60-100); SODIUM LEVEL 142 MMOL/L (136-145); TOTAL PROTEIN 7.2 G/DL (5.7-8.2)
[2024-12-01 19:03] LABS: KETONE, URINE AUTO RFX TRACE mg/dL (NEGATIVE); LEUKOCYTE ESTERASE UR AUTO RFX NEGATIVE (NEGATIVE); NITRITE, URINE AUTO RFX NEGATIVE (NEGATIVE); RBC, URINE AUTO RFX 1 /HPF (0-3); SQUAM EPITHELIAL CELL UR AURFX 3 /HPF (0-6); WBC, URINE AUTO RFX 0 /HPF (0-3)
[2024-12-01] MEDS: GASTROGRAFIN SOLUTION 30ML PO SCH (19:30)
[2024-12-01 20:02] LABS: CK-MB VALUE MASS < 1.0 NG/ML (<3.6)
[2024-12-01 20:04] LABS: CPK CREATINE PHOSPHOKINASE 65 U/L (34-145); MB/CK RELATIVE INDEX 1.53 (< OR =4)
[2024-12-01 20:34] LABS: CK-MB VALUE MASS < 1.0 NG/ML (<3.6)
[2024-12-01 20:35] LABS: CPK CREATINE PHOSPHOKINASE 54 U/L (34-145); MB/CK RELATIVE INDEX 1.85 (< OR =4)
[2024-12-01] MEDS ORDERED: ISOVUE-370 76% 100ML VIAL As Ordered ONE (20:48)
[2024-12-01 21:15] VITALS: BP 117/66; O2SAT 99
== END 2024-12-01 22:56 | disposition home or self-care (01) ==
LOC: M ED 16:38
DX: R10.9 Unspecified abdominal pain (principal); R51.9 Headache, unspecified; I44.0 Atrioventricular block, first degree; I45.10 Unspecified right bundle-branch block; Z79.899 Other long term (current) drug therapy
CPT/HCPCS: 36415; 70450; 71275; 74177; 80048; 80076; 81001; 82550; 82553; 83690; 84484; 84703; 85025; 93005; 93041; 96374; 99285; J2470; Q9963; Q9967

== ENCOUNTER 2024-12-21 08:47 | Day surgery (SDC) | payer OTHER ==
[~2024-12-21] VITALS: Ht 165.1 cm; Wt 52.4 kg
[~2024-12-21 08:47] MED LIST changes: +LIDOCAINE 2% 100MG/5ML SDV (FOR ANES.) As Ordered ONE; -OMEP40CA5; +propofoL 200 MG/20 ML VIAL As Ordered ONE
[2024-12-21] MEDS ORDERED: fentaNYL 100 MCG/2 ML INJECTION As Ordered ONE (09:54)
[2024-12-21] MEDS ORDERED: GLYCOPYRROLATE INJ 0.2 MG/ML 2 ML VIAL As Ordered ONE (10:08)
[2024-12-21 10:28] VITALS: TEMP 97.4
[2024-12-21 10:45] VITALS: BP 100/58; O2SAT 99
== END 2024-12-21 11:00 | disposition home or self-care (01) ==
LOC: M OPP 08:47
PROVIDERS: ATTEND Internal Medicine Gastroenterology
DX: K64.8 Other hemorrhoids (principal); K52.839 Microscopic colitis, unspecified; K29.70 Gastritis, unspecified, without bleeding; B96.81 Helicobacter pylori [H. pylori] as the cause of diseases classified elsewhere; Q43.8 Other specified congenital malformations of intestine; R10.33 Periumbilical pain; K44.9 Diaphragmatic hernia without obstruction or gangrene; R10.84 Generalized abdominal pain; R10.13 Epigastric pain; Z79.899 Other long term (current) drug therapy
CPT/HCPCS: 43239; 45380; 88305; J1596; J3010

== ENCOUNTER → 2025-01-05 | Outpatient (REF) | payer OTHER ==
[~2025-01-05] MED LIST changes: -LIDOCAINE 2% 100MG/5ML SDV (FOR ANES.) As Ordered ONE; -propofoL 200 MG/20 ML VIAL As Ordered ONE
[2025-01-05 16:07] LABS: PERCENT SATURATION 10.9 % (13.2-45.0)
[2025-01-05 16:24] LABS: FOLATE 21.1 NG/ML (>5.4)
== END ==
LOC: M LAB REF 15:02
PROVIDERS: ATTEND Nurse Practitioner Family
DX: Z86.39 Personal history of other endocrine, nutritional and metabolic disease (principal)

== ENCOUNTER → 2025-01-25 | Outpatient (CLI) | payer OTHER ==
[2025-01-25 17:53] LABS: HEMATOCRIT 36.2 % (36.0-47.0); HEMOGLOBIN 11.6 g/dl (12.0-15.5); MEAN CORPUSCULAR HEMOGLOBIN 27.6 pg (27.0-33.0); MEAN CORPUSCULAR VOLUME 86.2 fl (80.0-96.0); PLATELET COUNT, AUTOMATED 195 10^3/uL (150-450); WHITE BLOOD COUNT 6.4 10^3/uL (4.0-10.0)
[2025-01-25 18:14] LABS: HIV 1&2 SCREEN NEGATIVE (NEGATIVE)
[2025-01-25 18:22] LABS: HEPATITIS C VIRUS ABY INDEX 0.03 INDEX (<0.8)
[2025-01-25 19:44] LABS: Trichomonas vaginalis (AMP) NOT DETECTED (NEGATIVE)
[2025-01-25 20:07] LABS: GC DNA AMPLIFICATION NEGATIVE (NEGATIVE)
== END ==
LOC: M PLALAB 14:41
PROVIDERS: ATTEND Advanced Practice Midwife
DX: Z34.81 Encounter for supervision of other normal pregnancy, first trimester (principal)

== ENCOUNTER → 2025-02-05 | Outpatient (CLI) | payer OTHER | LOC: M WHC 13:41 | PROVIDERS: ATTEND Advanced Practice Midwife | DX: N63.20 Unspecified lump in the left breast, unspecified quadrant (principal) ==

== ENCOUNTER → 2025-02-22 | Outpatient (CLI) | payer OTHER | LOC: M PLALAB 09:16 | PROVIDERS: ATTEND Advanced Practice Midwife | DX: Z34.81 Encounter for supervision of other normal pregnancy, first trimester (principal) ==

== ENCOUNTER → 2025-05-09 | Outpatient (CLI) | payer OTHER | LOC: M WHC 14:30 | PROVIDERS: ATTEND Nurse Practitioner Family | DX: Z34.80 Encounter for supervision of other normal pregnancy, unspecified trimester (principal) ==

== ENCOUNTER → 2025-05-25 | Outpatient (CLI) | payer OTHER ==
[2025-05-25 13:26] LABS: PLATELET COUNT, AUTOMATED 153 10^3/uL (150-450)
[2025-05-25 14:30] LABS: GLUCOSE CHALLENGE TEST 1 HOUR 123 MG/DL (LESS THAN 140)
[2025-05-25 14:33] LABS: Trichomonas vaginalis (AMP) NOT DETECTED (NEGATIVE)
[2025-05-25 14:57] LABS: GC DNA AMPLIFICATION NEGATIVE (NEGATIVE)
[2025-05-25 14:59] LABS: HIV 1&2 SCREEN NEGATIVE (NEGATIVE)
[2025-05-25 15:08] LABS: HEPATITIS C VIRUS ABY INDEX < 0.02 INDEX (<0.8)
== END ==
LOC: M PLALAB 09:35
PROVIDERS: ATTEND Obstetrics & Gynecology
DX: Z34.92 Encounter for supervision of normal pregnancy, unspecified, second trimester (principal)

== ENCOUNTER → 2025-07-10 | Outpatient (REF) | payer OTHER | LOC: M SFHCWAGY 17:22 | PROVIDERS: ATTEND Nurse Practitioner Family | DX: R30.0 Dysuria (principal) ==

== ENCOUNTER → 2025-08-08 | Outpatient (REF) | payer OTHER | LOC: M SFHCWAGY 15:13 | PROVIDERS: ATTEND Advanced Practice Midwife | DX: O34.211 Maternal care for low transverse scar from previous cesarean delivery (principal); Z3A.00 Weeks of gestation of pregnancy not specified ==

== ENCOUNTER 2025-09-03 23:54 | Inpatient (IN) | payer OTHER ==
[~2025-09-03] VITALS: Ht 162.6 cm; Wt 75.1 kg
[2025-09-04] VITALS (15 sets, daily range): BP systolic 103–128; BP diastolic 54–82; O2SAT 97–99
[2025-09-04] MEDS ORDERED: LIDOCAINE 1% MDV 20 ML VIAL INFIL PRN (00:50)
[2025-09-04] MEDS ORDERED: TRANEXAMIC ACID INJection 1,000 MG in NS 100 ML IV PRN (00:50)
[2025-09-04] MEDS ORDERED: OXYTOCIN INJ 10UNITS/ML 1ML VIAL IM PRN (00:50)
[2025-09-04] MEDS ORDERED: CARBOPROST TROMETHAMINE 250 MCG/ML AMP IM PRN (00:50)
[2025-09-04] MEDS ORDERED: METHYLERGONOVINE MALEATE 0.2 MG/ML 1 ML VIAL IM PRN (00:50)
[2025-09-04 01:38] LABS: PLATELET COUNT, AUTOMATED 155 10^3/uL (150-450)
[2025-09-04] MEDS ORDERED: ONDANSETRON 4MG/2ML VIAL IV PRN (03:00)
[2025-09-04] MEDS ORDERED: NALOXONE INJ 0.4 MG/1 ML VIAL IV PRN (03:00)
[2025-09-04] MEDS ORDERED: diphenhydrAMINE 50 MG/ML VIAL IV PRN (03:00)
[2025-09-04] MEDS ORDERED: EPIDURAL/PCA KEYS XX PRN (03:00)
[2025-09-04 04:24] LABS: HIV 1&2 SCREEN NEGATIVE (NEGATIVE)
[2025-09-04 04:32] LABS: HEPATITIS C VIRUS ABY INDEX < 0.02 INDEX (<0.8)
[2025-09-04] MEDS: OXYTOCIN DRIP 30 UNITS in IV 1 EA IV PRN (05:31)
[2025-09-04] MEDS: FENTANYL/ROPIVACAINE/NACL BAG 100 ML EPIDURAL SCH (05:58)
[2025-09-04] MEDS ORDERED: DOCUSATE SODIUM 100 MG CAPSULE PO PRN (06:05)
[2025-09-04] MEDS ORDERED: RHOGAM 300MCG (1500IU) INJ IM SCH (06:05)
[2025-09-04] MEDS ORDERED: IBUPROFEN 600 MG TAB PO PRN (06:05)
[2025-09-04] MEDS ORDERED: MOM 30 ML SUSPENSION UDC PO PRN (06:05)
[2025-09-04] MEDS ORDERED: ANUSOL HC CREAM 30 GM TOP PRN (06:05)
[2025-09-04] MEDS ORDERED: HOME MED LIST COMPLETE! XX SCH (06:40)
[2025-09-04] MEDS: LR 500 ML IV PRN (07:00)
[2025-09-04] MEDS: PRENATAL VITAMINS CHEWABLE TABLET PO SCH (09:05)
[2025-09-04] MEDS: IBUPROFEN 800 MG TAB PO PRN (09:05)
[2025-09-04] MEDS: DIBUCAINE 1% OINTMENT 30 GM TOP PRN (09:05)
[2025-09-04] MEDS: ACETAMINOPHEN 500 MG TAB PO PRN (14:56)
[2025-09-05 05:47] VITALS: BP 101/58; O2SAT 99
[2025-09-05] MEDS: ACETAMINOPHEN 325 MG TAB PO PRN (08:08)
[2025-09-06] MEDS ORDERED: MEASLES,MUMPS,RUBELLA VACCINE INJ (MMR-II) SC.IMMUN ONE (09:00)
== END 2025-09-05 13:35 | disposition home or self-care (01) | DRG 560 ==
LOC: M LDO 23:54 → M LDI 09-04 00:47 → M OBS 09-04 07:45
PROVIDERS: ADMIT Advanced Practice Midwife; ATTEND Advanced Practice Midwife
PROC: 10E0XZZ Delivery of Products of Conception, External Approach (ICD-10-PCS; principal; 2025-09-04)
PROC: 10907ZC Drainage of Amniotic Fluid, Therapeutic from Products of Conception, Via Natural or Artificial Opening (ICD-10-PCS; 2025-09-04)
DX: O34.211 Maternal care for low transverse scar from previous cesarean delivery (principal); Z3A.39 39 weeks gestation of pregnancy; Z79.899 Other long term (current) drug therapy; Z37.0 Single live birth